=== PATIENT | female | born 1980 | race Native Hawaiian/Other Pacific Islander ===

== ENCOUNTER 2017-07-16 10:41 | Emergency (ER) | payer OTHER, SELFPAY ==
[2017-07-16 11:00] VITALS: BP 112/84; PULSE 63; RESP 17; O2SAT 100
[2017-07-16 11:30] VITALS: BP 118/77; PULSE 64; RESP 17; O2SAT 99
--- NOTE | 2017-07-16 11:35 | DI.RAD.S_ITS ---
PROCEDURE: XR CHEST 2V INDICATIONS: chest pain TECHNIQUE: 2 views of the chest were acquired. COMPARISON: None. FINDINGS: Surgical changes and devices: None. Lungs and pleura: No pleural effusions or pneumothorax. Lungs are clear. Mediastinum: Mediastinal contours are normal. Heart size is normal. Bones and chest wall: No suspicious bony abnormalities. Soft tissues appear unremarkable. IMPRESSION: No acute disease. Dictated by: Daniel Mercado M.D. on 07/16/2017 at 12:08 Approved by: Daniel Mercado M.D. on 07/16/2017 at 12:14
[2017-07-16 11:42] LABS: Add Manual Diff / Slide Review NO; Basophils Percent Auto 1.2 % (0-2); Eosinophils Percent Auto 2.9 % (2-4); Hematocrit 42.5 % (36-46); Hemoglobin 13.4 g/dL (12.0-16.0); Lymphocytes Percent Auto 25.9 % (25-40); Mean Corpuscular HGB Conc 31.6 % (30-36); Mean Corpuscular Hemoglobin 21.7 PG (26-34); Mean Corpuscular Volume 68.8 fL (80-100); Monocytes Percent Auto 5.5 % (3-14); Neutrophils Absolute Auto 5600 /uL (3000-5900); Neutrophils Percent Auto 64.5 % (50-75); Platelet Count 288 X10^3/uL (150-400); Red Blood Cell Count 6.18 X10^6/uL (4.0-5.2); Red Cell Distribution Width 14.2 % (11.6-14.8); White Blood Cell Count 8.6 X10^3/uL (4.5-11.0)
[2017-07-16 11:47] LABS: Pregnancy Test Serum,Qual Negative (Negative)
[2017-07-16 12:01] LABS: Microcytosis 3+
[2017-07-16 12:02] LABS: BUN Creatinine Ratio 26.3 (6-22); Blood Urea Nitrogen 21 mg/dL (7-17); Calcium 9.5 mg/dL (8.4-10.2); Carbon Dioxide 27 mmol/L (22-32); Chloride 100 mmol/L (98-107); Estimated Glomerular Filt Rate > 60.0 mL/min (>60); Glucose 96 mg/dL (70-100); HEMOLYSIS < 15 (0-50); Potassium 3.8 mmol/L (3.4-5.1); Sodium 139 mmol/L (137-145)
[2017-07-16 12:05] LABS: Troponin I < 0.012 ng/mL (0.01-0.034)
[2017-07-16] MEDS: MECLIZINE HCL 12.5 MG TABLET 50 MG PO (12:05)
[2017-07-16 12:12] LABS: D Dimer < 200 ng/mL (<230)
[2017-07-16 12:30] VITALS: BP 96/80; PULSE 59; RESP 20; O2SAT 100
--- NOTE | 2017-07-16 12:36 | ED_ITS ---
HPI - Syncope General Chief Complaint: Dizziness Stated Complaint: SHARP CHEST PAIN FOR 4 DAYS History of Present Illness HPI narrative: HPI 36-year-old female with history of hypertension presents for evaluation of 4 days of poorly characterized substernal, dull stabbing type pain, pain is nonradiating, provoking or relieving factors unclear, patient denies shortness of breath, notes mild lightheadedness type symptoms that are minimal to absent the present time. Patient denies recent immobilization, leg trauma, estrogen use , surgery in the last four weeks, hemoptysis, or malignancy in the last 6 months. M/S/F/SocHx notable for: please see HPI; remainder reviewed with patient and in chart. ROS: Negative constitutional, eye, cardiovascular, pulmonary, GI, , MSK, skin , neurologic, psychiatric, endocrine unless noted in the HPI. Exam Gen: Pleasant, non-toxic appearing, resting comfortably. HEENT: NC, AT, PEERL, EOMI. Resp: Clear to auscultation bilaterally, normal work of breathing. Card: RRR with no M/R/G, no crackles in lung bases, no pedal edema, no JVD appreciated. GI: NT/ND Vascular: Both ankles, calves, and thighs of equal size, no calf tenderness to palpation bilaterally. MSK: No chest wall TTP. No visible deformities, strength and tone WNL. Skin: Normal color with no visible lesions. Neuro: * Gen. AO x 3, no facial asymmetry, no gaze preference, no slurring of speech. * Cranial nerves. II-III: pupils equal and reactive to afferent and efferent stimuli (3->2mm bilaterally); III, IV, : EOMI, V1-V3: sensation to touch bilaterally intact; VII: no facial asymmetry (frown / smile); VIII: hearing grossly intact bilaterally; X: phonation intact, uvula midline; XI: trapezius 5/ 5 bilaterally, XII: tongue midline. * Brainstem: horizontal eye movements with smooth conjugate pursuit and without nystagmus, left eccentric gaze without nystagmus, right eccentric gaze without nystagmus. Alternate cover test without skew. * Cerebellar no pronator drift, [id number] testing without dysmetria, . * Motor bilateral 5/5 alterations tailor strength and intact hand sensation to touch, bilateral 5/5 dorsiflexion/plantarflexion and foot sensation intact to touch. * Romberg: Negative * Gait: Normal gait without imbalance. Psych: Mood and affect appropriate. Labs / Imaging (pertinent): WBC 8.6, Hb 13.4, Na 139, K 3.8. Troponin <0.012 d-dimer <200 negative EKG: SR at 66 bpm, no AZ segment depressions, no new ST segment changes, new LBBB, or T-wave changes that would suggest acute ischemia. CXR: No acute cardiopulmonary disease process. MDM Previous chart, nursing note, and vitals reviewed. A: 36-year-old female with history of hypertension presents for evaluation of 4 days of poorly characterized substernal, dull stabbing type pain, pain is nonradiating, provoking or relieving factors unclear, patient denies shortness of breath, notes mild lightheadedness type symptoms that are minimal to absent the present time. DDx and Evaluation - Chest Pain: * ACS - doubt ACS given a non-ischemic EKG and a negative troponin greater than six hours from maximal symptom onset. * UA - unlikely given the atypical history and alternate diagnosis. * Pericarditis - consider pericarditis unlikely given the lack of AZ segment depressions as well as the absence of diffuse ST-segment elevations, lack of reduction of pain when supine, and lack of a friction rub. * Myocarditis - unlikely given the negative troponin and an EKG without characteristic AZ-segment or ST-segment changes. * Dissection - dissection is unlikely given symptoms, and lack of mediastinal widening. * PE - Wells' (Signs & Sx of DVT - 0, PE is #1 or equally likelihood - 0, HR > 100 - 0, immobilization of >=3 days or surgery in last 28 days - 0, prior DVT or PE - 0, hemoptysis - 0, malignancy w/ tx in last 6 mo or palliative - 0) zero ; as such the patient's negative d-dimer is appropriate for risk stratification/ rule out. * Mediastinal Air - no evidence by CXR or auscultation. * Pneumothorax - no evidence by CXR or physical exam. * MSK - doubt given lack of reproducibility on exam. * Endocarditis - no identifiable risk factors, patient afebrile, no new murmurs appreciated on exam; doubt. * GI (Esophageal rupture, GERD) - esophageal rupture effectively excluded given the lack of mediastinal widening, non-toxic appearance, and lack of identifiable risk factors. While not definitively excluded, further evaluation of GERD is deferred to an outpatient setting. DDX and evaluation - vertiginous symptoms: Strongly doubt TIA or CVA based on exam, history, and risk factors. No evidence of anemia, given the absence of hearing changes no evidence of M?ni?re's disease, no evidence of migraine associated vertigo, and posterior circulation ischemia (posterior fossa CVA, vertebral artery stenosis or dissection, vertibrobasilar artery TIA, stenosis, or dissection) is felt to be highly unlikely given the lack of corroborating symptoms or risk factors. Given the patient's mild orthostatic complement there may be a slight dehydration contribution. Cardiac auscultation without evidence of flow-limiting murmurs (or further murmurs). Patient recommended to increase PO intake and follow up with PCP for further care and evaluation. ED course: patient given meclizine with improvement of symptoms. Disposition: Discharge with PCP follow up. Return to care precautions given verbally and in writing. Impression: Chest Pain. (please reference below for remainder of encounter information) Related Data Home Medications Medication Instructions Recorded Confirmed Women's Multivitamin 1 tab PO DAILY 07/16/17 07/16/17 lisinopril-hydrochlorothiazide 1 tab PO DAILY 07/16/17 07/16/17 Allergies Allergy/AdvReac Type Severity Reaction Status Date / Time No Known Drug Allergies Allergy Verified 07/16/17 11:21 Course Orders Ordered: ED Orders 07/16/17 11:11 Complete Blood Count AUTO DIFF Stat D Dimer Stat Test Serum,Qual Stat Troponin I Stat 07/16/17 11:35 XR chest 2V Stat Basic Metabolic Panel Stat Discontinued Medications Meclizine HCl (Antivert) 50 mg PO NOW ONE Stop: 07/16/17 11:57 Last Admin: 07/16/17 12:05 Dose: 50 mg MDM - Syncope Lab Data Result diagrams: 07/16/17 11:11 07/16/17 11:35 Lab Results 07/16/17 07/16/17 07/16/17 Range/Units 11:11 11:11 11:11 WBC 8.6 (4.5-11.0) X10^3/uL RBC 6.18 H (4.0-5.2) X10^6/uL Hgb 13.4 (12.0-16.0) g/dL Hct 42.5 (36-46) % MCV 68.8 L (80-100) fL MCH 21.7 L (26-34) PG MCHC 31.6 (30-36) % RDW 14.2 (11.6-14.8) % Plt Count 288 (150-400) X10^3/uL Neut % (Auto) 64.5 (50-75) % Lymph % (Auto) 25.9 (25-40) % [place] % (Auto) 5.5 (3-14) % Eos % (Auto) 2.9 (2-4) % Baso % (Auto) 1.2 (0-2) % Neut # (Auto) 5600 (5354-1425) /uL RBC Morphology Not Reportable Microcytosis 3+ H D-Dimer < 200 (<230) ng/mL Sodium (137-145) mmol/L Potassium (3.4-5.1) mmol/L Chloride (98-107) mmol/L Carbon Dioxide (22-32) mmol/L BUN (7-17) mg/dL Creatinine (0.52-1.04) mg/dL Estimated GFR (>60) mL/min BUN/Creatinine Ratio (6-22) Glucose (70-100) mg/dL Calcium (8.4-10.2) mg/dL Troponin I (0.01-0.034) ng/mL Serum , Qual Negative (Negative) 07/16/17 07/16/17 Range/Units 11:11 11:35 WBC (4.5-11.0) X10^3/uL RBC (4.0-5.2) X10^6/uL Hgb (12.0-16.0) g/dL Hct (36-46) % MCV (80-100) fL MCH (26-34) PG MCHC (30-36) % RDW (11.6-14.8) % Plt Count (150-400) X10^3/uL Neut % (Auto) (50-75) % Lymph % (Auto) (25-40) % [place] % (Auto) (3-14) % Eos % (Auto) (2-4) % Baso % (Auto) (0-2) % Neut # (Auto) (3281-4895) /uL RBC Morphology Microcytosis D-Dimer (<230) ng/mL Sodium 139 (137-145) mmol/L Potassium 3.8 (3.4-5.1) mmol/L Chloride 100 (98-107) mmol/L Carbon Dioxide 27 (22-32) mmol/L BUN 21 H (7-17) mg/dL Creatinine 0.80 (0.52-1.04) mg/dL Estimated GFR > 60.0 (>60) mL/min BUN/Creatinine Ratio 26.3 H (6-22) Glucose 96 (70-100) mg/dL Calcium 9.5 (8.4-10.2) mg/dL Troponin I < 0.012 (0.01-0.034) ng/mL Serum , Qual (Negative) Discharge Plan Departure Prescriptions: No Action lisinopril-hydrochlorothiazide 20-25 mg Tablet 1 tab PO DAILY RF: 0 Women's Multivitamin 1 tab PO DAILY RF: 0
== END 2017-07-16 12:44 | disposition home or self-care (01) ==
PROVIDERS: Emergency Provider Emergency Medicine
DX: R07.89 Other chest pain (principal)
CPT/HCPCS: 36591; 71046; 80048; 84484; 84703; 85025; 85379; 93005; 99281; 99285